=== PATIENT | female | born 1975 | race Caucasian/White ===

== ENCOUNTER 2018-06-27 08:49 | Outpatient (CLI) | payer BC | END 2018-06-27 08:50 | disposition home or self-care (01) | LOC: BICMAMMO 08:49 | PROVIDERS: ATTEND Obstetrics & Gynecology Gynecology | DX: Z12.31 Encounter for screening mammogram for malignant neoplasm of breast (principal); R92.1 Mammographic calcification found on diagnostic imaging of breast | CPT/HCPCS: 77063; 77067 ==

== ENCOUNTER 2018-07-10 13:39 | Outpatient (CLI) | payer BC | END 2018-07-10 13:40 | disposition home or self-care (01) | LOC: BICMAMMO 13:39 | PROVIDERS: ATTEND Obstetrics & Gynecology Gynecology | DX: R92.2 Inconclusive mammogram (principal); R92.1 Mammographic calcification found on diagnostic imaging of breast | CPT/HCPCS: G0279 ==

== ENCOUNTER → 2018-07-24 | Day surgery (SDC) | payer BC ==
--- NOTE | 2018-07-24 09:38 | MMO ---
STEREOTACTIC GUIDED BIOPSY RIGHT BREAST MICROCALCIFICATIONS SURGICAL SPECIMEN MAMMOGRAPHY RIGHT DIAGNOSTIC MAMMOGRAM POST BIOPSY: History: Abnormal mammogram. Right breast microcalcifications, suspicious. FINDINGS: After explaining the procedure and answering all questions, the microcalcification cluster at the sup erior aspect of the right breast was visualized. Sterile technique, buffered local anesthesia, stereo tactic guidance, and a superior approach were used to carefully advance a 10 gauge vacuum assisted ne edle into the bed of microcalcifications. Post was confirmed. A total of 12 vacuum assisted specimens were obtained without difficulty. SURGICAL SPECIMEN MAMMOGRAPHY: Surgical specimen mammography shows microcalcifications in most of the samples. Localization clips wa s placed in the biopsy bed under stereotactic guidance and position was confirmed. Needle was removed . Patient tolerated the procedure well and was eventually dismissed in good condition. POST PROCEDURE MAMMOGRAPHY: Post procedure mammographic imaging shows some of the microcalcifications to have been removed. Local ization clip is in good position at the biopsy bed superior aspect right breast. IMPRESSION: Technically successful stereotactic guided biopsy right breast microcalcifications. Pathology is pend ing. POS: JERRY
== END ==
LOC: MAMMO 07:26
PROVIDERS: ATTEND Obstetrics & Gynecology Gynecology
PROC: 0HBT3ZX Excision of Right Breast, Percutaneous Approach, Diagnostic (ICD-10-PCS; principal; 2018-07-24)
DX: N60.21 Fibroadenosis of right breast (principal)
CPT/HCPCS: 19081; 76098; 88305

== ENCOUNTER 2020-03-19 11:05 | Outpatient (CLI) | payer BC ==
--- NOTE | 2020-03-19 12:09 | MMO ---
Bilateral MAMMO Bilat Screen [facility]. CLINICAL HISTORY: Patient is 44 years old and is seen for screening. The patient has no family history of breast cancer. The patient has no personal history of cancer. The patient has a history of right Stereotatic Biopsy in 2019 - benign. VIEWS: The views performed were: bilateral craniocaudal with tomosynthesis and bilateral mediolateral oblique with tomosynthesis. FILMS COMPARED: The present examination has been compared to prior imaging studies performed at [facility] on 06/27/2018 and 07/10/2018. This study has been interpreted with the assistance of computer-aided detection. MAMMOGRAM FINDINGS: The breasts are heterogeneously dense, which could obscure a lesion on mammography. There is a biopsy clip seen in the right breast. There are no suspicious masses, suspicious calcifications, or new areas of architectural distortion. IMPRESSION: THERE IS NO MAMMOGRAPHIC EVIDENCE OF MALIGNANCY. A ROUTINE FOLLOW-UP MAMMOGRAM IN 1 YEAR IS RECOMMENDED. THE RESULTS OF THIS EXAM WERE SENT TO THE PATIENT. ACR BI-RADS Category 2 - Benign finding MAMMOGRAPHY NOTE: 1. A negative mammogram report should not delay a biopsy if a dominant of clinically suspicious mass is present. 2. Approximately 10% to 15% of breast cancers are not detected by mammography. 3. Adenosis and dense breasts may obscure an underlying neoplasm. Reported by: CAESAR DUKE MD Electonically Signed: [id number]
== END 2020-03-19 11:06 | disposition home or self-care (01) ==
LOC: BICMAMMO 11:05
PROVIDERS: ATTEND Obstetrics & Gynecology Gynecology
DX: Z12.31 Encounter for screening mammogram for malignant neoplasm of breast (principal); Z91.89 Other specified personal risk factors, not elsewhere classified
CPT/HCPCS: 77063; 77067